=== PATIENT | female | born 1955 | race Caucasian/White ===

== ENCOUNTER 2018-04-25 11:35 | Inpatient (IN) | payer OTHER ==
[2018-04-25] MEDS ORDERED: METOCLOPRAMIDE 5 MG/ML 2 ML VIAL IVP STA (12:02)
[2018-04-25] MEDS ORDERED: MECLIZINE 12.5 MG TAB PO STA (12:02)
[2018-04-25] MEDS ORDERED: SODIUM CHLORIDE 0.9% 1,000 ML IV STA (12:02)
--- NOTE | 2018-04-25 12:07 | ED ---
General Adult HPI - General Chief complaint: Dizziness Stated complaint: Dizziness Time Seen by Provider: 04/25/18 11:48 Source: patient, RN notes reviewed Mode of arrival: wheelchair Limitations: no limitations - History of Present Illness Initial comments: Patient is a pleasant 62-year-old female presenting to the emergency department with lightheadedness and nausea. Symptoms have been present for months. Daughter helps provide history. Daughter and patient argue regarding history. Patient states she does have visual problems which is chronic. Patient states her visual problems have progressively worsened since the age of 38. Patient states she has not seen an eye doctor in several years. No confusion. Daughter states patient does have occasional memory problems. No headache or isolated area of weakness. - Related Data Home Medications Medication Instructions Recorded Confirmed Cyanocobalamin (Vitamin B-12) 1,000 mcg PO DAILY 04/25/18 04/25/18 [Vitamin B-12] Ibuprofen [Motrin Ib] 400 mg PO BID PRN 04/25/18 04/25/18 Multivitamins, Thera [Multivitamin 1 tab PO DAILY 04/25/18 04/25/18 (formulary)] Pyridoxine HCl (Vitamin B6) 100 mg PO DAILY 04/25/18 04/25/18 [Vitamin B-6] Allergies Allergy/AdvReac Type Severity Reaction Status Date / Time No Known Allergies Allergy Verified 04/25/18 12:19 Review of Systems ROS Statement: Those systems with pertinent positive or pertinent negative responses have been documented in the HPI. ROS Other: All systems not noted in ROS Statement are negative. Constitutional: Denies: fever Eyes: Reports: vision change (Chronic). Denies: eye pain ENT: Denies: ear pain Respiratory: Denies: cough Cardiovascular: Denies: chest pain Endocrine: Denies: fatigue Gastrointestinal: Denies: abdominal pain Genitourinary: Denies: dysuria Musculoskeletal: Denies: back pain Skin: Denies: rash Neurological: Denies: weakness Past Medical History Past Medical History: No Reported History History of Any Multi-Drug Resistant Organisms: None Reported Past Surgical History: No Surgical Hx Reported Past Psychological History: No Psychological Hx Reported Smoking Status: Current every day smoker Past Alcohol Use History: Rare Past Drug Use History: Marijuana General Exam Limitations: no limitations General appearance: alert, in no apparent distress Head exam: Present: atraumatic Eye exam: Present: normal appearance, PERRL, EOMI. Absent: nystagmus Expanded Eyelids: Normal Inspection: Bilateral Pupils: Regular, Round: Bilateral Sclera/Conjunctival: Normal Inspection: Bilateral Posterior chamber: Normal Inspection: Bilateral ENT exam: Present: normal oropharynx Neck exam: Present: normal inspection Respiratory exam: Present: normal lung sounds bilaterally Cardiovascular Exam: Present: regular rate, normal rhythm GI/Abdominal exam: Present: soft. Absent: tenderness Extremities exam: Present: normal inspection Neurological exam: Present: alert, CN II-XII intact. Absent: motor sensory deficit Expanded Neurological exam: Present: protecting the airway Speech: Present: fluid speech Cranial nerves: EOM's Intact: Normal Cerebellar function: Finger to Nose: Normal Sensory exam: Upper Extremity Light Touch: Normal, Lower Extremity Light Touch: Normal Motor strength exam: RUE: 5, LUE: 5, RLE: 5, LLE: 5 Eye Response: (4) open spontaneously Motor Response: (6) obeys commands Verbal Response: (5) oriented Psychiatric exam: Present: normal affect, normal mood Skin exam: Present: normal color Course Vital Signs 04/25/18 04/25/18 04/25/18 11:38 12:22 13:00 Temperature 97.7 F Pulse Rate 64 59 L 56 L Respiratory 16 16 16 Rate Blood Pressure 247/86 212/96 184/103 O2 Sat by Pulse 97 99 99 Oximetry 04/25/18 14:00 Temperature Pulse Rate 63 Respiratory 18 Rate Blood Pressure 208/73 O2 Sat by Pulse 99 Oximetry EKG Findings - EKG Comments: EKG Findings:: Normal sinus rhythm 61. NH 136. QRS 80. QT 444. QTC 446. Normal axis. Normal QRS. No acute ST change. Medical Decision Making - Medical Decision Making Patient reevaluated and resting comfortably in bed. Patient remains unchanged. Blood pressure has improved some. Accu-Chek has continued hyperglycemia. Case was discussed with Dr. montano, who will admit for hospital call. - Lab Data Result diagrams: 04/25/18 12:18 04/25/18 12:18 Lab Results 04/25/18 04/25/18 04/25/18 Range/Units 12:18 12:18 12:18 WBC 9.8 (3.8-10.6) k/uL RBC 5.00 (3.80-5.40) m/uL Hgb 14.3 (11.4-16.0) gm/dL Hct 43.7 (34.0-46.0) % MCV 87.2 (80.0-100.0) fL MCH 28.6 (25.0-35.0) pg MCHC 32.8 (31.0-37.0) g/dL RDW 13.7 (11.5-15.5) % Plt Count 210 (150-450) k/uL Neutrophils % 52 % Lymphocytes % 36 % Monocytes % 5 % Eosinophils % 5 % Basophils % 1 % Neutrophils # 5.1 (1.3-7.7) k/uL Lymphocytes # 3.5 (1.0-4.8) k/uL Monocytes # 0.4 (0-1.0) k/uL Eosinophils # 0.5 (0-0.7) k/uL Basophils # 0.1 (0-0.2) k/uL PT 9.3 (9.0-12.0) sec INR 0.9 (<1.2) Sodium 137 (137-145) mmol/L Potassium 4.9 (3.5-5.1) mmol/L Chloride 103 (98-107) mmol/L Carbon Dioxide 25 (22-30) mmol/L Anion Gap 9 mmol/L BUN 23 H (7-17) mg/dL Creatinine 0.80 (0.52-1.04) mg/dL Est GFR (CKD-EPI)AfAm >90 (>60 ml/min/1.73 sqM) Est GFR (CKD-EPI)NonAf 78 (>60 ml/min/1.73 sqM) Glucose 354 H (74-99) mg/dL POC Glucose (mg/dL) (75-99) mg/dL POC Glu Hoisting Engineer ID Calcium 9.3 (8.4-10.2) mg/dL Total Bilirubin 0.2 (0.2-1.3) mg/dL AST 21 (14-36) U/L ALT 31 (9-52) U/L Alkaline Phosphatase 79 (38-126) U/L Total Protein 6.3 (6.3-8.2) g/dL Albumin 3.4 L (3.5-5.0) g/dL 04/25/18 Range/Units 13:47 WBC (3.8-10.6) k/uL RBC (3.80-5.40) m/uL Hgb (11.4-16.0) gm/dL Hct (34.0-46.0) % MCV (80.0-100.0) fL MCH (25.0-35.0) pg MCHC (31.0-37.0) g/dL RDW (11.5-15.5) % Plt Count (150-450) k/uL Neutrophils % % Lymphocytes % % Monocytes % % Eosinophils % % Basophils % % Neutrophils # (1.3-7.7) k/uL Lymphocytes # (1.0-4.8) k/uL Monocytes # (0-1.0) k/uL Eosinophils # (0-0.7) k/uL Basophils # (0-0.2) k/uL PT (9.0-12.0) sec INR (<1.2) Sodium (137-145) mmol/L Potassium (3.5-5.1) mmol/L Chloride (98-107) mmol/L Carbon Dioxide (22-30) mmol/L Anion Gap mmol/L BUN (7-17) mg/dL Creatinine (0.52-1.04) mg/dL Est GFR (CKD-EPI)AfAm (>60 ml/min/1.73 sqM) Est GFR (CKD-EPI)NonAf (>60 ml/min/1.73 sqM) Glucose (74-99) mg/dL POC Glucose (mg/dL) 384 H (75-99) mg/dL POC Glu Hoisting Engineer ID Fanny Story Calcium (8.4-10.2) mg/dL Total Bilirubin (0.2-1.3) mg/dL AST (14-36) U/L ALT (9-52) U/L Alkaline Phosphatase (38-126) U/L Total Protein (6.3-8.2) g/dL Albumin (3.5-5.0) g/dL - Radiology Data Radiology results: report reviewed (Computed tomography scan the brain shows no acute intercranial abnormality. Some fluid in the right mastoid.) Disposition Clinical Impression: Uncontrolled diabetes mellitus, Hypertension Disposition: ADMITTED IP TO THIS HOSP Is patient prescribed a controlled substance at d/c from ED?: No Referrals: None,Stated [Primary Care Provider] - 1-2 days Decision Time: 14:24
[2018-04-25 13:03] LABS: ALT 31 U/L (9-52); AST 21 U/L (14-36); Albumin 3.4 g/dL (3.5-5.0); Alkaline Phosphatase 79 U/L (38-126); Anion Gap 9 mmol/L; Blood Urea Nitrogen 23 mg/dL (7-17); Calcium 9.3 mg/dL (8.4-10.2); Carbon Dioxide 25 mmol/L (22-30); Chloride 103 mmol/L (98-107); Glucose 354 mg/dL (74-99); INR 0.9 (<1.2); Potassium 4.9 mmol/L (3.5-5.1); Prothrombin Time 9.3 sec (9.0-12.0); Sodium 137 mmol/L (137-145); Total Bilirubin 0.2 mg/dL (0.2-1.3); Total Protein 6.3 g/dL (6.3-8.2)
--- NOTE | 2018-04-25 13:11 | CT ---
EXAMINATION TYPE: CT brain wo con DATE OF EXAM: 04/25/2018 COMPARISON: NONE HISTORY: 62-year-old female Dizziness, blurred vision with vomiting TECHNIQUE: Examination was done in axial plane without intravenous contrast. Coronal and sagittal r econstructions performed. CT DLP: 1121 mGycm Automated exposure control for dose reduction was used. FINDINGS: There is no evidence of acute intracranial hemorrhage, acute ischemic changes, mass, mass-effect, or extra-axial fluid collection. There is no effacement of cerebral sulci or basal subarachnoid cister ns. There is no hydrocephalus. There is no midline shift. Kumar-white matter distinction is preserv ed. Mild age-related supratentorial volume loss. Mild patchy periventricular white matter hypodensities l ikely relate to changes of chronic small vessel ischemic disease. Mild to moderate mucosal thickening anterior right ethmoid air cells and bilateral frontal sinuses. O rbits and globes are intact. Partial opacification of the right mastoid air cells. IMPRESSION: 1. No acute intracranial abnormality seen. Age-related volume loss and mild burden of chronic small v essel ischemic disease. 2. Trapped fluid in the right mastoid air cells. Correlate for any mastoid pain to exclude mastoiditi s. 3. Mild to moderate chronic bifrontal sinus disease.
[2018-04-25 13:26] LABS: Basophils # (A) 0.1 k/uL (0-0.2); Basophils % (A) 1 %; Eosinophils # (A) 0.5 k/uL (0-0.7); Eosinophils % (A) 5 %; HCT 43.7 % (34.0-46.0); HGB 14.3 gm/dL (11.4-16.0); Lymphocytes # (A) 3.5 k/uL (1.0-4.8); Lymphocytes % (A) 36 %; MCH 28.6 pg (25.0-35.0); MCHC 32.8 g/dL (31.0-37.0); MCV 87.2 fL (80.0-100.0); Mean Platelet Volume 8.1; Monocytes # (A) 0.4 k/uL (0-1.0); Monocytes % (A) 5 %; Neutrophils # (A) 5.1 k/uL (1.3-7.7); Neutrophils % (A) 52 %; Platelet Count 210 k/uL (150-450); RDW 13.7 % (11.5-15.5); WBC 9.8 k/uL (3.8-10.6)
[2018-04-25 13:51] LABS: Glucose,Whole Blood 384 mg/dL (75-99)
[2018-04-25] MEDS ORDERED: NALOXONE 0.4 MG/ML 1 ML VIAL IV PRN (14:25)
[2018-04-25] MEDS ORDERED: amLODIPine 2.5 MG TAB PO STA (14:28)
[2018-04-25] MEDS: SODIUM CHLORIDE 0.9% 1,000 ML IV SCH (15:23)
[2018-04-25 16:52] LABS: Glucose,Whole Blood 369 mg/dL (75-99)
[2018-04-25] MEDS ORDERED: IBUPROFEN 400 MG TAB PO PRN (17:16)
[2018-04-25] MEDS ORDERED: amLODIPine 5 MG TAB PO STA ×2 (17:16→19:02)
[2018-04-25] MEDS ORDERED: INSULIN ASPART 100 UNIT/ML 1 ML 10 ML VIAL SQ SCH (17:30)
[2018-04-25] MEDS ORDERED: TEMAZEPAM 15 MG CAP PO PRN (18:58)
[2018-04-25] MEDS ORDERED: hydrALAZINE HCL 20 MG/ML 1 ML VIAL IVP PRN (18:58)
[2018-04-25] MEDS ORDERED: cloNIDine HCL 0.1 MG TAB PO PRN (18:58)
[2018-04-25] MEDS ORDERED: ALPRAZolam 0.25 MG TAB PO PRN (18:58)
[2018-04-25] MEDS ORDERED: HYDROcodone/APAP 5-325MG 1 EACH TAB PO PRN (18:58)
[2018-04-25] MEDS ORDERED: INSULIN REGULAR 100 UNIT in SODIUM CHLORIDE 0.9% 100 ML IV SCH ×7 (19:00→21:00)
[2018-04-25] MEDS: HEPARIN SODIUM,PORCINE 5,000 UNIT/ML 1 ML VIAL SQ SCH (20:03)
[2018-04-25] MEDS: METOPROLOL TARTRATE 25 MG TAB PO SCH (20:03)
[2018-04-25] MEDS: NICOTINE 14MG/24HR PATCH TRANSDERM SCH (20:05)
--- NOTE | 2018-04-25 20:08 | XR ---
EXAMINATION TYPE: XR chest 1V portable DATE OF EXAM: 04/25/2018 Comparison: Clinical History: 62-year-old female CHF Findings: The heart is upper limits of normal in size. Aorta within normal limits. Diffuse interstitial promine nce. Hazy peripheral lower lung densities relating to overlying soft tissue. Impression: Borderline heart size and mild diffuse interstitial prominence. Mild pulmonary vascular congestion no t excluded. No significant pleural effusion or [place] pulmonary edema.
[2018-04-25 20:27] LABS: Glucose,Whole Blood 250 mg/dL (75-99)
[2018-04-25] MEDS: INSULIN ASPART 100 UNIT/ML 1 ML 10 ML VIAL SQ SCH (21:27)
[2018-04-25 21:36] LABS: Glucose,Whole Blood 192 mg/dL (75-99)
[2018-04-25 22:58] LABS: Hemoglobin A1C 11.7 % (4.0-6.0)
[2018-04-25] MEDS: metFORMIN 500 MG TAB PO SCH (23:17)
[2018-04-26 03:41] LABS: Glucose,Whole Blood 221 mg/dL (75-99)
[2018-04-26 06:19] LABS: Glucose,Whole Blood 227 mg/dL (75-99)
[2018-04-26] MEDS: INSULIN ASPART 100 UNIT/ML 1 ML 10 ML VIAL SQ SCH ×4 (06:48→21:13)
[2018-04-26] MEDS: PANTOPRAZOLE 40 MG TABLET PO SCH (06:48)
[2018-04-26] MEDS: metFORMIN 500 MG TAB PO SCH ×2 (06:48→17:31)
--- NOTE | 2018-04-26 07:16 | HP ---
HISTORY AND PHYSICAL DATE OF SERVICE: 04/25/2018 CHIEF COMPLAINT: Dizziness. HISTORY OF PRESENT ILLNESS: This 62-year-old woman with a past medical history of no significant medical issues not being followed by any primary physician in the outpatient setting was feeling dizzy. The patient came to [facility]. The patient also felt lightheaded and nausea and the patient had some problems also which is gradually getting worse and the patient was noted to have blood sugar elevated up to 350 indicating new onset diabetes mellitus. The patient also had blood pressure elevated up to 200/84, indicating accelerated hypertension. The patient is admitted for further evaluation and treatment. There is no history of fever, rigors. No headache, loss of consciousness, seizures. PAST MEDICAL HISTORY: No significant cardiorespiratory illness. MEDICATIONS: Prior to admission include home medication: 1. Motrin 400 mg b.i.d. p.r.n. 2. Vitamin B12 1000 mcg. 3. Vitamin B6 100 mg daily. 4. Multivitamins daily. ALLERGIES: None. FAMILY HISTORY: No history of heart disease or strokes in the family. SOCIAL HISTORY: History of smoking, history of THC, no history of alcohol intake. REVIEW OF SYSTEMS: ENT: No diminished hearing or vision. CARDIOVASCULAR: No angina or palpitations. Otherwise as mentioned. RESPIRATORY: No cough. GI: No nausea. : No dysuria or retention. NERVOUS SYSTEM: As mentioned earlier. ALLERGY/IMMUNOLOGY: No asthma. MUSCULOSKELETAL: As mentioned earlier. HEMATOLOGY/ONCOLOGY: No history of anemia. ENDOCRINE: No history of diabetes or hypothyroidism. CONSTITUTIONAL: As mentioned. DERMATOLOGY: Negative. RHEUMATOLOGY: Negative. PSYCHIATRY: As mentioned earlier. EXAMINATION: Alert and oriented x3. Pulse 63, blood pressure 200/84, respiration 18, temperature is normal, pulse ox 94% on 2 L. HEENT: Conjunctivae normal. Oral mucosa moist. NECK: No jugular venous distention. No carotid bruit. No lymph node enlargement. CARDIOVASCULAR: S1, S2 muffled. No S3, no S4. RESPIRATORY: Breath sounds diminished in the bases. A few rhonchi, no crackles. ABDOMEN: Soft, nontender. No mass palpable. LEGS: No edema, no swelling. NERVOUS SYSTEM: Higher functions as mentioned earlier. Moves all four limbs. No focal motor deficits LYMPHATIC: No lymphadenopathy in the neck, axillae, groin. SKIN: No ulcer, rashes or bleeding. LABS: CBC within normal limits. Glucose 350, 384, 369. Albumin 3.4. The EKG is reviewed personally showed no acute changes. The CT scan of the brain showed no acute abnormality. Chest x-ray showed no acute abnormality. The chest x-ray reviewed. ASSESSMENT: 1. Accelerated hypertension, new onset. 2. New onset diabetes mellitus, uncontrolled with hyperglycemia. 3. History of nicotine dependence. 4. History of THC. 5. Obesity with body mass index of 31.6. RECOMMENDATIONS AND DISCUSSION: This 62-year-old woman who presented with multiple complex medical issues, we will monitor the patient closely. Continue the current management and symptomatic treatment. Will initiate Glucophage. Accu-Cheks a.c. and at bedtime. Otherwise I would recommend Norvasc for blood pressure and cardiology was consulted. The prognosis is guarded because of multiple complex medical issues. Smoking cessation has been recommended. DVT prophylaxis. See orders of further details and repeat labs were ordered for the morning. Hemoglobin and HCT A1c also will be requested. The blood sugar has been elevated and the insulin drip was planned urgently, but however, since blood sugar is coming down, will check insulin scale and I would also initiate Glucophage also. We will continue to monitor. Might be able to avoid insulin in an outpatient setting. Of course, that will depend on the evaluation of estimated hemoglobin A1c as well. Again, I would also recommend the patient follow up with primary physician closely and discussed with the patient, who understands. Further recommendations to follow. JENNY / LESLY: [id number] / CESAR
[2018-04-26] MEDS ORDERED: INSULIN ASPART 100 UNIT/ML 1 ML 10 ML VIAL SQ SCH ×3 (07:30)
[2018-04-26 07:36] LABS: Basophils # (A) 0.1 k/uL (0-0.2); Basophils % (A) 1 %; Eosinophils # (A) 0.5 k/uL (0-0.7); Eosinophils % (A) 5 %; HCT 39.5 % (34.0-46.0); HGB 13.3 gm/dL (11.4-16.0); Lymphocytes # (A) 4.1 k/uL (1.0-4.8); Lymphocytes % (A) 41 %; MCH 29.1 pg (25.0-35.0); MCHC 33.6 g/dL (31.0-37.0); MCV 86.6 fL (80.0-100.0); Mean Platelet Volume 8.3; Monocytes # (A) 0.4 k/uL (0-1.0); Monocytes % (A) 4 %; Neutrophils # (A) 4.6 k/uL (1.3-7.7); Neutrophils % (A) 46 %; Platelet Count 201 k/uL (150-450); RBC 4.57 m/uL (3.80-5.40); RDW 13.5 % (11.5-15.5)
[2018-04-26 07:41] LABS: Calcium 8.5 mg/dL (8.4-10.2); Potassium 4.6 mmol/L (3.5-5.1)
[2018-04-26] MEDS: amLODIPine 10 MG TAB PO SCH (08:51)
[2018-04-26] MEDS: CYANOCOBALAMIN 500 MCG TAB PO SCH (08:51)
[2018-04-26] MEDS: PYRIDOXINE 50 MG TAB PO SCH (08:51)
[2018-04-26] MEDS: HEPARIN SODIUM,PORCINE 5,000 UNIT/ML 1 ML VIAL SQ SCH ×2 (08:52→21:13)
[2018-04-26] MEDS: METOPROLOL TARTRATE 25 MG TAB PO SCH (08:52)
[2018-04-26] MEDS: NICOTINE 14MG/24HR PATCH TRANSDERM SCH (08:52)
[2018-04-26] MEDS ORDERED: amLODIPine 2.5 MG TAB PO SCH (09:00)
--- NOTE | 2018-04-26 11:37 | P.CRDCN ---
History of Present Illness Consult date: 04/26/18 Requesting physician: Don Mitchell Chief complaint: Dizziness, nausea History of present illness: This is a 62-year-old female who has not followed regularly with any physician as an outpatient. She presented to the hospital with symptoms of dizziness with associated lightheadedness and nausea. Apparently the symptoms have been going on for several months, she had also been having some issues with her vision. Patient is a current smoker and also uses marijuana. Her blood pressure on arrival here was 247/86, heart rate in the 60s, 97% on room air. Blood glucose on arrival 354. CBC is normal, sodium 140, potassium 4.6, BUN 23, creatinine 0.9. EKG showed normal sinus rhythm with nonspecific ST-T wave changes. CAT scan of the brain did not reveal any acute intracranial abnormality. Trapped fluid in the right mastoid noted. Mild to moderate chronic bifrontal sinus disease. Chest x-ray showed borderline heart size and mild diffuse interstitial prominence. Mild pulmonary vascular congestion not excluded. Blood pressure this morning at the time of examination 170/78. Patient is currently on Norvasc 10 mg daily, we will add losartan 50 mg daily to her medication regime, she is also on 25 mg of metoprolol twice a day which we will change to Coreg. We will discontinue the when necessary antihypertensives. Past Medical History Past Medical History: No Reported History History of Any Multi-Drug Resistant Organisms: None Reported Past Surgical History: No Surgical Hx Reported Past Psychological History: No Psychological Hx Reported Smoking Status: Current every day smoker Past Alcohol Use History: Rare Past Drug Use History: Marijuana Medications and Allergies Home Medications Medication Instructions Recorded Confirmed Type Cyanocobalamin (Vitamin B-12) 1,000 mcg PO DAILY 04/25/18 04/25/18 History [Vitamin B-12] Ibuprofen [Motrin Ib] 400 mg PO BID PRN 04/25/18 04/25/18 History Multivitamins, Thera [Multivitamin 1 tab PO DAILY 04/25/18 04/25/18 History (formulary)] Pyridoxine HCl (Vitamin B6) 100 mg PO DAILY 04/25/18 04/25/18 History [Vitamin B-6] Allergies Allergy/AdvReac Type Severity Reaction Status Date / Time No Known Allergies Allergy Verified 04/25/18 12:19 Physical Exam Vitals: Vital Signs Temp Pulse Pulse Resp BP BP Pulse Ox 04/26/18 08:00 98.1 F 57 L 18 170/78 97 04/26/18 03:47 97.6 F 60 18 157/69 95 04/26/18 00:00 98.0 F 62 18 180/72 98 04/25/18 23:30 197/82 04/25/18 23:00 201/83 04/25/18 22:00 190/80 04/25/18 21:25 170/60 04/25/18 21:20 197/82 04/25/18 21:12 98 04/25/18 21:00 200/86 04/25/18 20:40 192/82 04/25/18 20:20 228/92 04/25/18 20:00 98.2 F 65 18 224/100 97 04/25/18 18:54 194/85 04/25/18 16:52 66 18 200/84 94 L 04/25/18 16:24 68 16 174/84 04/25/18 15:00 62 18 192/96 100 04/25/18 14:00 63 18 208/73 99 04/25/18 13:00 56 L 16 184/103 99 04/25/18 12:22 59 L 16 212/96 99 04/25/18 11:38 97.7 F 64 16 247/86 97 Intake and Output 04/25/18 04/26/18 04/26/18 22:59 06:59 14:59 Intake Total 180 10 Balance 180 10 Intake: IV 10 0.9 10 Oral 180 Other: Voiding Method Toilet Toilet Toilet # Voids 1 Weight 86.183 kg 86.5 kg PHYSICAL EXAMINATION: GENERAL: 62-year-old female who appears older than her stated age, in no apparent distress at the time of her examination HEENT: Head is atraumatic, normocephalic. Pupils equal, round. Sclera anicteric. Conjunctiva are clear. Mucous membranes of the mouth are moist. Neck is supple. There is no elevated jugular venous pressure.] bruit is heard. HEART EXAMINATION: Heart S1, S2 normal. No murmur or gallop heard. CHEST EXAMINATION: Lungs are clear to auscultation and precussion. No chest wall tenderness is noted on palpation or with deep breathing. ABDOMEN: Soft, nontender. Bowel sounds are heard. No organomegaly noted. EXTREMITIES: 2+ peripheral pulses with no evidence of peripheral edema and no calf tenderness noted. NEUROLOGIC patient is awake, alert and oriented -3. . Results 04/26/18 06:18 04/26/18 06:18 Cardiac Enzymes 04/25/18 Range/Units 12:18 AST 21 (14-36) U/L Coagulation 04/25/18 Range/Units 12:18 PT 9.3 (9.0-12.0) sec CBC 04/25/18 04/26/18 Range/Units 12:18 06:18 WBC 9.8 10.0 (3.8-10.6) k/uL RBC 5.00 4.57 (3.80-5.40) m/uL Hgb 14.3 13.3 (11.4-16.0) gm/dL Hct 43.7 39.5 (34.0-46.0) % Plt Count 210 201 (150-450) k/uL Comprehensive Metabolic Panel 04/25/18 04/26/18 Range/Units 12:18 06:18 Sodium 137 140 (137-145) mmol/L Potassium 4.9 4.6 (3.5-5.1) mmol/L Chloride 103 106 (98-107) mmol/L Carbon Dioxide 25 27 (22-30) mmol/L BUN 23 H 23 H (7-17) mg/dL Creatinine 0.80 0.90 (0.52-1.04) mg/dL Glucose 354 H 219 H (74-99) mg/dL Calcium 9.3 8.5 (8.4-10.2) mg/dL AST 21 (14-36) U/L ALT 31 (9-52) U/L Alkaline Phosphatase 79 (38-126) U/L Total Protein 6.3 (6.3-8.2) g/dL Albumin 3.4 L (3.5-5.0) g/dL Current Medications Generic Name Dose Route Start Last Admin Trade Name Freq PRN Reason Stop Dose Admin Hydrocodone Bitart/Acetaminophen 1 each 04/25/18 18:58 [place] 5-325 PO Q6HR PRN MODERATE Pain Alprazolam 0.25 mg 04/25/18 18:58 Xanax PO TID PRN Anxiety Amlodipine Besylate 10 mg 04/26/18 09:00 06/24/18 08:51 Norvasc PO 10 mg DAILY [facility] Administration Cyanocobalamin 1,000 mcg 04/26/18 09:00 04/26/18 08:51 Vitamin B-12 PO 1,000 mcg DAILY [facility] Administration Heparin Sodium (Porcine) 5,000 unit 04/25/18 21:00 04/26/18 08:52 Heparin SQ 5,000 unit Q12HR [facility] Administration Sodium Chloride 1,000 mls @ 20 mls/hr 04/25/18 14:30 04/25/18 15:23 Saline 0.9% IV Not Given .Q24H [facility] Ibuprofen 400 mg 04/25/18 17:16 Motrin PO BID PRN Pain Insulin Aspart 0 unit 04/25/18 21:18 04/26/18 06:48 Novolog SQ 3 unit ACHS [facility] Administration Protocol Losartan Potassium 50 mg 04/26/18 09:45 Cozaar PO DAILY [facility] Metformin HCl 1,000 mg 04/25/18 23:15 04/26/18 06:48 Glucophage PO 1,000 mg BID-W/MEALS [facility] Administration Metoprolol Tartrate 25 mg 04/25/18 21:00 04/26/18 08:52 Lopressor PO 25 mg BID [facility] Administration Multivitamins 1 each 04/26/18 12:00 Theragran PO 1200 [facility] Naloxone HCl 0.2 mg 04/25/18 14:25 Narcan IV Q2M PRN Opioid Reversal Nicotine 1 patch 04/25/18 19:00 04/26/18 08:52 Habitrol 14mg/24hr Patch TRANSDERM Not Given DAILY [facility] Pantoprazole Sodium 40 mg 04/26/18 07:30 04/26/18 06:48 Protonix PO 40 mg [id number] [facility] Administration Pyridoxine HCl 100 mg 04/26/18 09:00 04/26/18 08:51 Vitamin B-6 PO 100 mg DAILY [facility] Administration Temazepam 15 mg 04/25/18 18:58 Restoril PO HS PRN Insomnia Intake and Output 04/25/18 04/26/18 04/26/18 22:59 06:59 14:59 Intake Total 180 10 Balance 180 10 Intake: IV 10 0.9 10 Oral 180 Other: Voiding Method Toilet Toilet Toilet # Voids 1 Weight 86.183 kg 86.5 kg 04/26/18 06:18 04/26/18 06:18 EKG Interpretations (text) EKG shows normal sinus rhythm with nonspecific ST-T wave changes Assessment and Plan Plan: Assessment and plan #1 hypertensive urgency #2 new-onset diabetes, uncontrolled with hyperglycemia #3 nicotine dependence #4 marijuana use Plan We will obtain an echocardiogram with Doppler study. We will also discontinue her when necessary antihypertensives, add Cozaar 50 mg to her medication regime. We will also discontinue the metoprolol and changed to Coreg. Check fasting lipid profile. Patient has been instructed strongly regarding the importance of nicotine cessation and regular follow-up with primary care doctor to maintain adequate levels in her blood sugars as well as blood pressure. We will initiate the patient on a statin as well. Further recommendations to follow DNP note has been reviewed, I agree with a documented findings and plan of care. Patient was seen and examined.
[2018-04-26 11:39] LABS: Glucose,Whole Blood 222 mg/dL (75-99)
[2018-04-26 12:03] LABS: Cholesterol 242 mg/dL (<200); HDL Cholesterol 34 mg/dL (40-60); LDL Cholesterol,Calculated 153 mg/dL (0-99); Triglycerides 273 mg/dL (<150)
[2018-04-26] MEDS: LOSARTAN 50 MG TAB PO SCH (12:13)
[2018-04-26] MEDS: CARVEDILOL 3.125 MG TAB PO SCH ×2 (12:14→16:15)
[2018-04-26] MEDS: MULTIVITAMINS, THERA 1 EACH TAB PO SCH (12:15)
[2018-04-26] MEDS: SODIUM CHLORIDE 0.9% 1,000 ML IV SCH (12:18)
[2018-04-26 16:39] LABS: Glucose,Whole Blood 177 mg/dL (75-99)
[2018-04-26 20:18] LABS: Glucose,Whole Blood 173 mg/dL (75-99)
[2018-04-26] MEDS: cloNIDine HCL 0.2 MG TAB PO SCH (21:12)
--- NOTE | 2018-04-26 21:18 | PN ---
PROGRESS NOTE DATE OF SERVICE: 04/26/2018. INTERVAL HISTORY: This 62-year-old woman was admitted with new onset diabetes and hypertension being closely monitored. Patient had accelerated hypertension. Cardiology is following the patient closely. No chest pain. No palpitations. No fever. Internal Investigator evaluation has been sought. PHYSICAL EXAM: Alert and oriented x3. Pulse 57, blood pressure 149/88, respiration 14, temperature 98 degrees, pulse ox 97% on room air. HEENT: Conjunctivae normal. NECK: No jugular venous distention. CARDIOVASCULAR: S1, S2 muffled. RESPIRATORY: Breath sounds diminished in the bases. A few scattered rhonchi and crackles. ABDOMEN: Soft, nontender. No mass palpable. LEGS: No edema. No swelling. NERVOUS SYSTEM: Higher functions as mentioned earlier. Moves all four extremities. No focal deficits. SKIN: No ulcer, rash or bleeding. LABS: CBC within normal limits and glucose is 227 and triglycerides 273, cholesterol is 242 and LDL is 153. ASSESSMENT: 1. Accelerated hypertension, new onset of hypertensive urgency. 2. New onset diabetes type 2, uncontrolled with hyperglycemia. 3. History of nicotine dependence. 4. History of THC. 5. Obesity with body mass index of 31.6. RECOMMENDATIONS AND DISCUSSION: In this 62-year-old woman who presented with multiple complex medical issues, we will monitor the patient closely. Continue the current medications, continue symptomatic treatment. Continue with the initial Lipitor. Otherwise, continue with Coreg and Norvasc. Guarded prognosis because of multiple complex medical issues. Further recommendations to follow. MMODL / IJN: [id number] /
[2018-04-26 23:04] VITALS: RESP 18
[2018-04-27 05:54] LABS: Glucose,Whole Blood 200 mg/dL (75-99)
[2018-04-27] MEDS: CARVEDILOL 3.125 MG TAB PO SCH (06:30)
[2018-04-27] MEDS: PANTOPRAZOLE 40 MG TABLET PO SCH (06:30)
[2018-04-27] MEDS: metFORMIN 500 MG TAB PO SCH ×2 (06:30→17:22)
[2018-04-27] MEDS: INSULIN ASPART 100 UNIT/ML 1 ML 10 ML VIAL SQ SCH ×4 (06:30→21:00)
[2018-04-27 07:08] LABS: Basophils # (A) 0.1 k/uL (0-0.2); Basophils % (A) 1 %; Eosinophils # (A) 0.5 k/uL (0-0.7); Eosinophils % (A) 5 %; HCT 37.7 % (34.0-46.0); HGB 12.6 gm/dL (11.4-16.0); Lymphocytes # (A) 4.7 k/uL (1.0-4.8); Lymphocytes % (A) 47 %; MCH 29.3 pg (25.0-35.0); MCHC 33.4 g/dL (31.0-37.0); MCV 87.8 fL (80.0-100.0); Mean Platelet Volume 7.7; Monocytes # (A) 0.5 k/uL (0-1.0); Monocytes % (A) 5 %; Neutrophils # (A) 4.1 k/uL (1.3-7.7); Neutrophils % (A) 40 %; Platelet Count 182 k/uL (150-450); RBC 4.29 m/uL (3.80-5.40); RDW 13.9 % (11.5-15.5)
[2018-04-27 07:16] LABS: Calcium 8.7 mg/dL (8.4-10.2); Potassium 4.8 mmol/L (3.5-5.1)
[2018-04-27] MEDS ORDERED: CARVEDILOL 3.125 MG TAB PO ONE (08:00)
[2018-04-27] MEDS: CYANOCOBALAMIN 500 MCG TAB PO SCH (08:44)
[2018-04-27] MEDS: HEPARIN SODIUM,PORCINE 5,000 UNIT/ML 1 ML VIAL SQ SCH ×2 (08:44→20:19)
[2018-04-27] MEDS: amLODIPine 10 MG TAB PO SCH (08:44)
[2018-04-27] MEDS: cloNIDine HCL 0.2 MG TAB PO SCH ×2 (08:44→20:19)
[2018-04-27] MEDS: LOSARTAN 50 MG TAB PO SCH (08:44)
[2018-04-27] MEDS: NICOTINE 14MG/24HR PATCH TRANSDERM SCH (08:45)
[2018-04-27] MEDS: PYRIDOXINE 50 MG TAB PO SCH (08:45)
[2018-04-27 10:44] VITALS: BMI 32.1
[2018-04-27 11:18] LABS: Glucose,Whole Blood 209 mg/dL (75-99)
[2018-04-27] MEDS: MULTIVITAMINS, THERA 1 EACH TAB PO SCH (12:20)
--- NOTE | 2018-04-27 12:48 | ECHOF ---
Referral Reason:htn MEASUREMENTS -------- HEIGHT: 165.1 cm WEIGHT: 87.1 kg BP: 172/72 IVSd: 1.4 cm (0.6 - 1.1) LVIDd: 4.3 cm (3.9 - 5.3) LVPWd: 1.5 cm (0.6 - 1.1) IVSs: 1.9 cm LVIDs: 3.4 cm LVPWs: 1.6 cm LA Diam: 3.7 cm (2.7 - 3.8) LAESV Index (A-L): 30.55 ml/m Ao Diam: 3.0 cm (2.0 - 3.7) AV Cusp: 2.2 cm (1.5 - 2.6) LA Diam: 4.1 cm (2.7 - 3.8) MV EXCURSION: 15.618 mm (> 18.000) MV EF SLOPE: 82 mm/s (70 - 150) EPSS: 0.3 cm MV E Fernando: 0.61 m/s MV DecT: 267 ms MV A Fernando: 0.74 m/s MV E/A Ratio: 0.82 AR PHT: 643 ms RAP: 5.00 mmHg RVSP: 11.24 mmHg FINDINGS -------- Sinus rhythm. This was a technically adequate study. The left ventricular size is normal. There is moderate concentric left ventricular hypertrophy. O verall left ventricular systolic function is normal with, an EF between 55 - 60 %. The right ventricle is normal in size. The left atrial size is normal. Normal LA size by volume 22+/-6 ml/m2. The right atrial size is normal. There is mild aortic regurgitation. Mild mitral annular calcification present. Mild mitral regurgitation is present. Mild tricuspid regurgitation present. There is no evidence of pulmonary hypertension. The right v entricular systolic pressure, as measured by Doppler, is 11.24mmHg. Trace/mild (physiologic) pulmonic regurgitation. The aortic root size is normal. There is no pericardial effusion. CONCLUSIONS -------- 1. The left ventricular size is normal. 2. There is moderate concentric left ventricular hypertrophy. 3. The right ventricle is normal in size. 4. The left atrial size is normal. 5. The right atrial size is normal. 6. There is mild aortic regurgitation. 7. Mild mitral annular calcification present. 8. Mild mitral regurgitation is present. 9. Mild tricuspid regurgitation present. 10. There is no evidence of pulmonary hypertension. 11. The right ventricular systolic pressure, as measured by Doppler, is 11.24mmHg. 12. Trace/mild (physiologic) pulmonic regurgitation. 13. The aortic root size is normal. 14. There is no pericardial effusion. JOINT CUTTER: iWnter Murdock RDCS
--- NOTE | 2018-04-27 15:02 | P.PN ---
Subjective Progress Note Date: 04/27/18 This is a 62-year-old female who has not followed regularly with any physician as an outpatient. She presented to the hospital with symptoms of dizziness with associated lightheadedness and nausea. Apparently the symptoms have been going on for several months, she had also been having some issues with her vision. Patient is a current smoker and also uses marijuana. Her blood pressure on arrival here was 247/86, heart rate in the 60s, 97% on room air. Blood glucose on arrival 354. CBC is normal, sodium 140, potassium 4.6, BUN 23, creatinine 0.9. EKG showed normal sinus rhythm with nonspecific ST-T wave changes. CAT scan of the brain did not reveal any acute intracranial abnormality. Trapped fluid in the right mastoid noted. Mild to moderate chronic bifrontal sinus disease. Chest x-ray showed borderline heart size and mild diffuse interstitial prominence. Mild pulmonary vascular congestion not excluded. Blood pressure this morning at the time of examination 170/78. Patient is currently on Norvasc 10 mg daily, we will add losartan 50 mg daily to her medication regime, she is also on 25 mg of metoprolol twice a day which we will change to Coreg. We will discontinue the when necessary antihypertensives. 04/27/2018 Patient seen and examined this morning, overall feeling significantly better today. Blood pressure 136/60 with a heart rate in the mid 50s, 98% on room air. She is afebrile. White blood cell count 10.0, hemoglobin 12.6, platelet count 182. Sodium 138, potassium 4.8, BUN 27, creatinine 1.1. Blood sugar this morning 194. Cholesterol 242, LDL 153, HDL 34, triglycerides 273. Objective - Vital Signs Vital signs: Vital Signs Temp 97.3 F L 04/27/18 12:00 Pulse 53 L 04/27/18 12:00 Resp 18 04/27/18 12:00 BP 173/78 04/27/18 12:00 Pulse Ox 96 04/27/18 12:00 Intake & Output 04/26/18 04/27/18 04/27/18 18:59 06:59 18:59 Intake Total 360 110 480 Output Total 801 Balance 360 110 -321 Weight 87.4 kg 87.4 kg Intake: IV 10 0.9 10 Oral 360 100 480 Output: Urine 800 Stool 1 Other: Voiding Method Toilet Toilet Toilet # Voids 1 1 3 - Exam PHYSICAL EXAMINATION: GENERAL: 62-year-old female who appears older than her stated age, in no apparent distress at the time of her examination HEENT: Head is atraumatic, normocephalic. Pupils equal, round. Sclera anicteric. Conjunctiva are clear. Mucous membranes of the mouth are moist. Neck is supple. There is no elevated jugular venous pressure.] bruit is heard. HEART EXAMINATION: Heart S1, S2 normal. No murmur or gallop heard. CHEST EXAMINATION: Lungs are clear to auscultation and precussion. No chest wall tenderness is noted on palpation or with deep breathing. ABDOMEN: Soft, nontender. Bowel sounds are heard. No organomegaly noted. EXTREMITIES: 2+ peripheral pulses with no evidence of peripheral edema and no calf tenderness noted. NEUROLOGIC patient is awake, alert and oriented -3. - Labs CBC & Chem 7: 04/27/18 06:31 04/27/18 06:31 Labs: Abnormal Lab Results - Last 24 Hours (Table) 04/26/18 04/26/18 04/27/18 Range/Units 16:36 20:16 05:52 BUN (7-17) mg/dL Creatinine (0.52-1.04) mg/dL Glucose (74-99) mg/dL POC Glucose (mg/dL) 177 H 173 H 200 H (75-99) mg/dL 04/27/18 04/27/18 Range/Units 06:31 11:13 BUN 27 H (7-17) mg/dL Creatinine 1.11 H (0.52-1.04) mg/dL Glucose 194 H (74-99) mg/dL POC Glucose (mg/dL) 209 H (75-99) mg/dL Assessment and Plan Plan: Assessment and plan #1 hypertensive urgency #2 new-onset diabetes, uncontrolled with hyperglycemia #3 nicotine dependence #4 marijuana use Plan Echocardiogram with Doppler study was performed which revealed a normal left ventricular systolic function. We'll increase her dose of Lipitor to 80 mg daily, continue to monitor for 24 hours and plan for possible discharge home in the morning if stable. DNP note has been reviewed, I agree with a documented findings and plan of care. Patient was seen and examined.
[2018-04-27] MEDS: SODIUM CHLORIDE 0.9% 1,000 ML IV SCH (15:44)
[2018-04-27 16:07] LABS: Glucose,Whole Blood 236 mg/dL (75-99)
[2018-04-27] MEDS: CARVEDILOL 6.25 MG TAB PO SCH (17:23)
--- NOTE | 2018-04-27 18:05 | PN ---
PROGRESS NOTE DATE OF SERVICE: 04/27/2018 This 62-year-old woman was admitted with accelerated hypertension, new onset, with hypertensive urgency. Also she has diabetes mellitus. She is being closely monitored. No chest pain. No palpitations. No fever. Cardiology is following the patient closely. Patient has some bradycardia. On exam, alert and oriented x3. Pulse 56, blood pressure 130/61, respiration 18, temperature 97.4, pulse ox 97% on room air. HEENT: Conjunctivae normal. NECK: No jugular venous distention. CARDIOVASCULAR SYSTEM: S1, S2 muffled. RESPIRATORY SYSTEM: Breath sounds diminished at the bases. No rhonchi. No crackles. ABDOMEN: Soft, non-tender. LEGS: No edema. No swelling. NERVOUS SYSTEM: No focal deficit. LABS: CBC within normal limits. Creatinine is 1.11 and hemoglobin A1c is 11.7. ASSESSMENT: 1. Accelerated hypertension, new onset; hypertensive urgency. 2. New-onset diabetes mellitus, type 2, uncontrolled, with hyperglycemia. 3. History of nicotine dependence. 4. History of tetrahydrocannabinol. 5. Obesity with a body mass index of 31.6. RECOMMENDATIONS AND DISCUSSION: I recommend to continue current medication, continue with the monitoring, symptomatic treatment. Otherwise at this time I would also recommend adding Lantus 15 units plus scale. Continue the rest of the medications. Otherwise closely monitor. Further recommendations to follow. MMODL / IJN: [id number] /
[2018-04-27 20:37] LABS: Glucose,Whole Blood 226 mg/dL (75-99)
[2018-04-27] MEDS ORDERED: ATORVASTATIN 40 MG TAB PO SCH (21:00)
[2018-04-27] MEDS ORDERED: INSULIN DETEMIR 100 UNIT/ML 10 ML VIAL SQ SCH (21:00)
[2018-04-28 06:06] LABS: Basophils # (A) 0.1 k/uL (0-0.2); Basophils % (A) 1 %; Eosinophils # (A) 0.5 k/uL (0-0.7); Eosinophils % (A) 6 %; HCT 37.3 % (34.0-46.0); HGB 12.5 gm/dL (11.4-16.0); Lymphocytes # (A) 3.8 k/uL (1.0-4.8); Lymphocytes % (A) 42 %; MCHC 33.4 g/dL (31.0-37.0); MCV 86.9 fL (80.0-100.0); Mean Platelet Volume 8.2; Monocytes # (A) 0.4 k/uL (0-1.0); Monocytes % (A) 5 %; Neutrophils % (A) 45 %; Platelet Count 194 k/uL (150-450); RDW 13.4 % (11.5-15.5)
[2018-04-28 06:09] LABS: Calcium 8.8 mg/dL (8.4-10.2); Potassium 4.8 mmol/L (3.5-5.1)
[2018-04-28 06:16] LABS: Glucose,Whole Blood 109 mg/dL (75-99)
[2018-04-28] MEDS: INSULIN ASPART 100 UNIT/ML 1 ML 10 ML VIAL SQ SCH (06:17)
[2018-04-28] MEDS: CARVEDILOL 6.25 MG TAB PO SCH (06:18)
[2018-04-28] MEDS: metFORMIN 500 MG TAB PO SCH (06:31)
[2018-04-28] MEDS: PANTOPRAZOLE 40 MG TABLET PO SCH (06:31)
[2018-04-28] MEDS: cloNIDine HCL 0.2 MG TAB PO SCH (08:22)
[2018-04-28] MEDS: amLODIPine 10 MG TAB PO SCH (08:22)
[2018-04-28] MEDS: CYANOCOBALAMIN 500 MCG TAB PO SCH (08:22)
[2018-04-28] MEDS: LOSARTAN 50 MG TAB PO SCH (08:22)
[2018-04-28] MEDS: MULTIVITAMINS, THERA 1 EACH TAB PO SCH (08:23)
[2018-04-28] MEDS: PYRIDOXINE 50 MG TAB PO SCH (08:23)
[2018-04-28] MEDS: NICOTINE 14MG/24HR PATCH TRANSDERM SCH (08:32)
[2018-04-28] MEDS: HEPARIN SODIUM,PORCINE 5,000 UNIT/ML 1 ML VIAL SQ SCH (08:33)
--- NOTE | 2018-04-28 11:21 | P.PN ---
Subjective Progress Note Date: 04/28/18 This is a 62-year-old female who has not followed regularly with any physician as an outpatient. She presented to the hospital with symptoms of dizziness with associated lightheadedness and nausea. Apparently the symptoms have been going on for several months, she had also been having some issues with her vision. Patient is a current smoker and also uses marijuana. Her blood pressure on arrival here was 247/86, heart rate in the 60s, 97% on room air. Blood glucose on arrival 354. CBC is normal, sodium 140, potassium 4.6, BUN 23, creatinine 0.9. EKG showed normal sinus rhythm with nonspecific ST-T wave changes. CAT scan of the brain did not reveal any acute intracranial abnormality. Trapped fluid in the right mastoid noted. Mild to moderate chronic bifrontal sinus disease. Chest x-ray showed borderline heart size and mild diffuse interstitial prominence. Mild pulmonary vascular congestion not excluded. Blood pressure this morning at the time of examination 170/78. Patient is currently on Norvasc 10 mg daily, we will add losartan 50 mg daily to her medication regime, she is also on 25 mg of metoprolol twice a day which we will change to Coreg. We will discontinue the when necessary antihypertensives. 04/27/2018 Patient seen and examined this morning, overall feeling significantly better today. Blood pressure 136/60 with a heart rate in the mid 50s, 98% on room air. She is afebrile. White blood cell count 10.0, hemoglobin 12.6, platelet count 182. Sodium 138, potassium 4.8, BUN 27, creatinine 1.1. Blood sugar this morning 194. Cholesterol 242, LDL 153, HDL 34, triglycerides 273. 04/28/2018 Patient seen and examined this morning, feels well, no complaints. Blood pressure 127/60 with a heart rate in the 50s, 98% on room air. CBC normal, sodium 140, potassium 4.8, BUN 31, creatinine 1.1. Blood glucose 104 today. Objective - Vital Signs Vital signs: Vital Signs Temp 98.1 F 04/28/18 08:00 Pulse 52 L 04/28/18 08:00 Resp 18 04/28/18 08:00 BP 127/61 04/28/18 08:00 Pulse Ox 98 04/28/18 08:00 Intake & Output 04/27/18 04/28/18 04/28/18 18:59 06:59 18:59 Intake Total 720 Output Total 1701 Balance -981 Weight 87.4 kg 87.8 kg Intake: Oral 720 Output: Urine 1700 Stool 1 Other: Voiding Method Toilet Toilet # Voids 3 1 - Exam PHYSICAL EXAMINATION: GENERAL: 62-year-old female who appears older than her stated age, in no apparent distress at the time of her examination HEENT: Head is atraumatic, normocephalic. Pupils equal, round. Sclera anicteric. Conjunctiva are clear. Mucous membranes of the mouth are moist. Neck is supple. There is no elevated jugular venous pressure.] bruit is heard. HEART EXAMINATION: Heart S1, S2 normal. No murmur or gallop heard. CHEST EXAMINATION: Lungs are clear to auscultation and precussion. No chest wall tenderness is noted on palpation or with deep breathing. ABDOMEN: Soft, nontender. Bowel sounds are heard. No organomegaly noted. EXTREMITIES: 2+ peripheral pulses with no evidence of peripheral edema and no calf tenderness noted. NEUROLOGIC patient is awake, alert and oriented -3. - Labs CBC & Chem 7: 04/28/18 05:47 04/28/18 05:47 Labs: Abnormal Lab Results - Last 24 Hours (Table) 04/27/18 04/27/18 04/28/18 Range/Units 16:05 20:35 05:47 Chloride 108 H (98-107) mmol/L BUN 31 H (7-17) mg/dL Creatinine 1.10 H (0.52-1.04) mg/dL Glucose 104 H (74-99) mg/dL POC Glucose (mg/dL) 236 H 226 H (75-99) mg/dL 04/28/18 Range/Units 06:14 Chloride (98-107) mmol/L BUN (7-17) mg/dL Creatinine (0.52-1.04) mg/dL Glucose (74-99) mg/dL POC Glucose (mg/dL) 109 H (75-99) mg/dL Assessment and Plan Plan: Assessment and plan #1 hypertensive urgency #2 new-onset diabetes, uncontrolled with hyperglycemia #3 nicotine dependence #4 marijuana use Plan Echocardiogram with Doppler study was performed which revealed a normal left ventricular systolic function. From cardiology's perspective, patient may be able to be discharged home once cleared by primary. We'll make her a follow-up appointment in the office to see Dr. Menezes post discharge. DNP note has been reviewed, I agree with a documented findings and plan of care. Patient was seen and examined.
[2018-04-28 11:32] VITALS: BP 156/71; PULSE 56; TEMP 97.4
[2018-04-28 12:09] LABS: Glucose,Whole Blood 144 mg/dL (75-99)
--- NOTE | 2018-04-29 06:38 | DS ---
DISCHARGE SUMMARY DATE OF SERVICE: 04/28/2018. FINAL DIAGNOSES: 1. Accelerated hypertension, new onset hypertensive urgency. 2. New onset diabetes mellitus type 2, uncontrolled with hyperglycemia. 3. History of nicotine dependence. 4. History of THC. 5. Obesity with body mass index 31.6. DISCHARGE DISPOSITION: The patient will be discharged in stable condition with guarded prognosis. HISTORY OF PRESENT ILLNESS: This 62-year-old woman with a past medical history of no significant medical issues admitted with new onset diabetes and hypertension. Patient treatment in conjunction with Cardiology. Medication adjusted. Patient improved significantly. On exam, vitals are stable. CARDIOVASCULAR: S1, S2 muffled. ABDOMEN: Soft. NERVOUS SYSTEM: No focal deficits. DISCHARGE ADVICE AND MEDICATIONS: 1. Diet is cardiac. 2. Activity limited until followup. 3. Follow up with Dr. Rebolledo in 2-3 days. 4. Follow up with Cardiology as recommended. MEDICATIONS: 1. Norvasc 10 mg p.o. daily. 2. Lipitor 40 mg q.h.s. 3. Coreg 6.25 mg b.i.d. 4. Catapres 0.2 mg p.o. b.i.d. 5. Vitamin B2 2000 mg p.o. daily. 6. Motrin p.r.n. 7. Insulin 15 units subcu q.h.s. 8. Cozaar 50 mg p.o. daily. 9. Glucophage 1000 mg p.o. b.i.d.. 10.Multivitamins 1 p.o. daily. 11.Habitrol 14 daily. 12.Protonix 40 mg p.o. daily. 13.Vitamin B6 100 mg p.o. daily. MMODL / IJN: [id number] /
== END 2018-04-28 14:02 | disposition home or self-care (01) | DRG 305 ==
LOC: EC 11:35 → 4MS4W 14:30 → OBSVTOIN 14:30 → 6SEL 15:23
PROVIDERS: ADMIT Internal Medicine; ATTEND Internal Medicine
DX: I16.0 Hypertensive urgency (principal); E11.65 Type 2 diabetes mellitus with hyperglycemia; E66.9 Obesity, unspecified; F17.200 Nicotine dependence, unspecified, uncomplicated; F12.90 Cannabis use, unspecified, uncomplicated; Z79.899 Other long term (current) drug therapy; Z68.31 Body mass index [BMI] 31.0-31.9, adult; Z71.6 Tobacco abuse counseling
CPT/HCPCS: 36415; 70450; 71045; 80048; 80053; 80061; 83036; 85025; 85610; 93005; 93306; 94760; 96360; 96361; 99285

== ENCOUNTER 2018-05-01 14:07 | Emergency (ER) | payer OTHER ==
[2018-05-01 14:29] LABS: Glucose,Whole Blood 165 mg/dL (75-99)
--- NOTE | 2018-05-01 17:38 | ED ---
General Adult HPI - General Chief complaint: Recheck/Abnormal Lab/Rx Stated complaint: Elevated BS Time Seen by Provider: 05/01/18 16:58 Source: patient, RN notes reviewed, old records reviewed Mode of arrival: wheelchair Limitations: no limitations - History of Present Illness Initial comments: Patient is a 62-year-old female presents emergency department for evaluation for dizziness and lightheadedness and elevated blood sugar. She is diagnosed with hypertension and high blood sugar and was discharged from the hospital. Days ago. She has been started on metformin. Her blood sugar was elevated 240 today. Her daughter brought her in because she was concerned because of the dizziness lightheaded and elevated blood sugar. While waiting in the emergency department Patient reports that her symptoms have resolved. Denies any chest pain or shortness of breath. - Related Data Home Medications Medication Instructions Recorded Confirmed Cyanocobalamin (Vitamin B-12) 1,000 mcg PO DAILY 04/25/18 05/01/18 [Vitamin B-12] Ibuprofen [Motrin Ib] 400 mg PO BID PRN 04/25/18 05/01/18 Multivitamins, Thera [Multivitamin 1 tab PO DAILY 04/25/18 05/01/18 (formulary)] Pyridoxine HCl (Vitamin B6) 100 mg PO DAILY 04/25/18 05/01/18 [Vitamin B-6] Previous Rx's Medication Instructions Recorded Atorvastatin [Lipitor] 40 mg PO HS #30 tab 04/27/18 Carvedilol [Coreg] 6.25 mg PO BID-W/MEALS #60 tab 04/27/18 Losartan [Cozaar] 50 mg PO DAILY #30 tab 04/27/18 Nicotine 14Mg/24Hr Patch [Habitrol] 1 patch TRANSDERM DAILY #30 patch 04/27/18 amLODIPine [Norvasc] 10 mg PO DAILY #30 tab 04/27/18 cloNIDine HCL [Catapres] 0.2 mg PO BID #60 tab 04/27/18 metFORMIN HCL [Glucophage] 1,000 mg PO BID-W/MEALS #60 tab 04/27/18 Insulin Glargine,Hum.rec.anlog 15 unit SQ HS #1 syr 04/28/18 [Basaglar Kwikpen U-100] Pantoprazole [Protonix] 40 mg PO ERIC-ANGELA #30 tablet. 04/28/18 Allergies Allergy/AdvReac Type Severity Reaction Status Date / Time No Known Allergies Allergy Verified 05/01/18 17:16 Review of Systems ROS Statement: Those systems with pertinent positive or pertinent negative responses have been documented in the HPI. ROS Other: All systems not noted in ROS Statement are negative. Past Medical History Past Medical History: Diabetes Mellitus, Hypertension History of Any Multi-Drug Resistant Organisms: None Reported Past Surgical History: No Surgical Hx Reported Past Psychological History: No Psychological Hx Reported Smoking Status: Current every day smoker Past Alcohol Use History: None Reported Past Drug Use History: Marijuana General Exam - General Exam Comments Initial Comments: 62-year-old female. Alert and oriented. No acute distress. Limitations: no limitations General appearance: alert Head exam: Present: atraumatic, normocephalic, normal inspection Eye exam: Present: normal appearance, PERRL, EOMI. Absent: scleral icterus, conjunctival injection, periorbital swelling ENT exam: Present: normal exam, mucous membranes moist Neck exam: Present: normal inspection. Absent: tenderness, meningismus, lymphadenopathy Respiratory exam: Present: normal lung sounds bilaterally. Absent: respiratory distress, wheezes, rales, rhonchi, stridor Cardiovascular Exam: Present: regular rate, normal rhythm, normal heart sounds. Absent: systolic murmur, diastolic murmur, rubs, gallop, clicks GI/Abdominal exam: Present: soft, normal bowel sounds. Absent: distended, tenderness, guarding, rebound, rigid Extremities exam: Present: normal inspection, full ROM, normal capillary refill. Absent: tenderness, pedal edema, joint swelling, calf tenderness Back exam: Present: normal inspection Neurological exam: Present: alert, oriented X3, CN II-XII intact Psychiatric exam: Present: normal affect Skin exam: Present: warm, dry, intact, normal color. Absent: rash Course Vital Signs 05/01/18 05/01/18 14:22 19:04 Temperature 98.0 F 97 F L Pulse Rate 52 L 53 L Respiratory 18 20 Rate Blood Pressure 108/63 153/68 O2 Sat by Pulse 98 99 Oximetry Medical Decision Making - Medical Decision Making Patient is a 62-year-old female presents emergency department for evaluation for dizziness and lightheadedness and elevated blood sugar. She is diagnosed with hypertension and high blood sugar and was discharged from the hospital. Days ago. She has been started on metformin. Her blood sugar was elevated 240 today. Her daughter brought her in because she was concerned because of the dizziness lightheaded and elevated blood sugar. She denies any symptoms of light headed or dizziness at this time. Patient lab work was reviewed and shows no acute changes. Discussed Blood sugar of 240 can be expected, and they should schedule to check her BG throughout the day and follow up with PCP. EKG has no acute changes. Patient reports she feels well and wants to go home. Discharged with strict return parameters. - Lab Data Result diagrams: 05/01/18 17:59 05/01/18 17:59 Lab Results 05/01/18 05/01/18 05/01/18 Range/Units 14:27 17:59 17:59 WBC 11.1 H (3.8-10.6) k/uL RBC 4.67 (3.80-5.40) m/uL Hgb 13.3 (11.4-16.0) gm/dL Hct 40.3 (34.0-46.0) % MCV 86.4 (80.0-100.0) fL MCH 28.6 (25.0-35.0) pg MCHC 33.1 (31.0-37.0) g/dL RDW 13.4 (11.5-15.5) % Plt Count 190 (150-450) k/uL Neutrophils % 50 % Lymphocytes % 38 % Monocytes % 5 % Eosinophils % 5 % Basophils % 0 % Neutrophils # 5.6 (1.3-7.7) k/uL Lymphocytes # 4.2 (1.0-4.8) k/uL Monocytes # 0.6 (0-1.0) k/uL Eosinophils # 0.5 (0-0.7) k/uL Basophils # 0.0 (0-0.2) k/uL Sodium 139 (137-145) mmol/L Potassium 5.2 H (3.5-5.1) mmol/L Chloride 109 H (98-107) mmol/L Carbon Dioxide 21 L (22-30) mmol/L Anion Gap 9 mmol/L BUN 30 H (7-17) mg/dL Creatinine 1.20 H (0.52-1.04) mg/dL Est GFR (CKD-EPI)AfAm 55 (>60 ml/min/1.73 sqM) Est GFR (CKD-EPI)NonAf 48 (>60 ml/min/1.73 sqM) Glucose 149 H (74-99) mg/dL POC Glucose (mg/dL) 165 H (75-99) mg/dL POC Glu Access Clerk Galina Powell Calcium 9.0 (8.4-10.2) mg/dL Urine Color Urine Appearance (Clear) Urine pH (5.0-8.0) Ur Specific [place] (1.001-1.035) Urine Protein (Negative) Urine Glucose (UA) (Negative) Urine Ketones (Negative) Urine Blood (Negative) Urine Nitrite (Negative) Urine Bilirubin (Negative) Urine Urobilinogen (<2.0) mg/dL Ur Leukocyte Esterase (Negative) Urine RBC (0-5) /hpf Urine WBC (0-5) /hpf Ur Squamous Epith Cells (0-4) /hpf Urine Bacteria (None) /hpf Hyaline Casts (0-2) /lpf Urine Mucus (None) /hpf 05/01/18 Range/Units 18:19 WBC (3.8-10.6) k/uL RBC (3.80-5.40) m/uL Hgb (11.4-16.0) gm/dL Hct (34.0-46.0) % MCV (80.0-100.0) fL MCH (25.0-35.0) pg MCHC (31.0-37.0) g/dL RDW (11.5-15.5) % Plt Count (150-450) k/uL Neutrophils % % Lymphocytes % % Monocytes % % Eosinophils % % Basophils % % Neutrophils # (1.3-7.7) k/uL Lymphocytes # (1.0-4.8) k/uL Monocytes # (0-1.0) k/uL Eosinophils # (0-0.7) k/uL Basophils # (0-0.2) k/uL Sodium (137-145) mmol/L Potassium (3.5-5.1) mmol/L Chloride (98-107) mmol/L Carbon Dioxide (22-30) mmol/L Anion Gap mmol/L BUN (7-17) mg/dL Creatinine (0.52-1.04) mg/dL Est GFR (CKD-EPI)AfAm (>60 ml/min/1.73 sqM) Est GFR (CKD-EPI)NonAf (>60 ml/min/1.73 sqM) Glucose (74-99) mg/dL POC Glucose (mg/dL) (75-99) mg/dL POC Glu Access Clerk ID Calcium (8.4-10.2) mg/dL Urine Color Yellow Urine Appearance Clear (Clear) Urine pH 5.5 (5.0-8.0) Ur Specific [place] 1.018 (1.001-1.035) Urine Protein 3+ H (Negative) Urine Glucose (UA) Trace H (Negative) Urine Ketones Negative (Negative) Urine Blood Negative (Negative) Urine Nitrite Negative (Negative) Urine Bilirubin Negative (Negative) Urine Urobilinogen 2.0 (<2.0) mg/dL Ur Leukocyte Esterase Trace H (Negative) Urine RBC 1 (0-5) /hpf Urine WBC 3 (0-5) /hpf Ur Squamous Epith Cells 1 (0-4) /hpf Urine Bacteria Rare H (None) /hpf Hyaline Casts 11 H (0-2) /lpf Urine Mucus Rare H (None) /hpf - Radiology Data Radiology results: report reviewed EKG performed at 1823 shows sinus bradycardia otherwise normal EKG. Ventricular rate of 51 beats breath. Pupils 150 ms. QRS duration 82 ms. QT QTc is 470/433 ms. Disposition Clinical Impression: Hyperglycemia Disposition: HOME SELF-CARE Condition: Good Instructions: Diabetic Hyperglycemia (ED) Additional Instructions: Patient is to follow-up with primary care provider. Continue taking medication as prescribed. Return to emergency department if any alarming signs or symptoms occur. Rest, remain hydrated. Is patient prescribed a controlled substance at d/c from ED?: No When asked, does pt state using other controlled substances?: No If prescribed controlled substance>3 days was MAPS reviewed?: No If opioid is for acute pain is fill amount 7 days or less?: No If Rx opioid, was Start Talking consent form obtained?: No Referrals: None,Stated [Primary Care Provider] - 1-2 days Tamika Rinaldi MD [STAFF PHYSICIAN] - 1-2 days Time of Disposition: 18:45
[2018-05-01 18:09] LABS: Basophils % (A) 0 %; Eosinophils # (A) 0.5 k/uL (0-0.7); Eosinophils % (A) 5 %; HCT 40.3 % (34.0-46.0); HGB 13.3 gm/dL (11.4-16.0); Lymphocytes # (A) 4.2 k/uL (1.0-4.8); Lymphocytes % (A) 38 %; MCH 28.6 pg (25.0-35.0); MCHC 33.1 g/dL (31.0-37.0); MCV 86.4 fL (80.0-100.0); Mean Platelet Volume 8.6; Monocytes # (A) 0.6 k/uL (0-1.0); Monocytes % (A) 5 %; Neutrophils # (A) 5.6 k/uL (1.3-7.7); Neutrophils % (A) 50 %; Platelet Count 190 k/uL (150-450); RBC 4.67 m/uL (3.80-5.40); RDW 13.4 % (11.5-15.5); WBC 11.1 k/uL (3.8-10.6)
[2018-05-01 18:24] LABS: Potassium 5.2 mmol/L (3.5-5.1)
[2018-05-01 18:26] LABS: Appearance,Urine Clear (Clear); Bacteria,Urine Rare /hpf; Bilirubin,Urine Negative (Negative); Blood,Urine Negative (Negative); Color,Urine Yellow; Glucose,Urine (UA) Trace (Negative); Hyaline Casts,Urine 11 /lpf (0-2); Ketones,Urine Negative (Negative); Leukocyte Esterase,Urine Trace (Negative); Mucus,Urine Rare /hpf; Nitrite,Urine Negative (Negative); PH, Urine 5.5 (5.0-8.0); Protein,Urine 3+ (Negative); RBC,Urine 1 /hpf (0-5); Specific Gravity,Urine 1.018 (1.001-1.035); Squamous Epithelial Cell,Urine 1 /hpf (0-4); WBC,Urine 3 /hpf (0-5)
[2018-05-01 19:06] VITALS: BP 153/68; PULSE 53; RESP 20; TEMP 97
== END 2018-05-01 19:06 | disposition home or self-care (01) ==
LOC: EC 14:07
DX: E11.65 Type 2 diabetes mellitus with hyperglycemia (principal); F17.200 Nicotine dependence, unspecified, uncomplicated; Z79.899 Other long term (current) drug therapy
CPT/HCPCS: 36415; 80048; 81001; 85025; 93005; 99285

== ENCOUNTER → 2018-07-20 | Outpatient (CLI) | payer OTHER ==
--- NOTE | 2018-07-20 17:51 | US ---
EXAMINATION TYPE: US carotid duplex BILAT DATE OF EXAM: 07/20/2018 COMPARISON: NONE CLINICAL HISTORY: 62-year-old female R42 Dizziness,I10 Hypertension,E11.9 Diabetes. TECHNIQUE: Carotid duplex ultrasound examination are indirect Doppler criteria was utilized. FINDINGS: EXAM MEASUREMENTS: RIGHT: Peak Systolic Velocity (PSV) cm/sec ----- Right CCA: 118 ----- Right ICA: 81.4 ----- Right ECA: 160 ICA/CCA ratio: 0.7 RIGHT: End Diastole cm/sec ----- Right CCA: 19.9 ----- Right ICA: 26.9 ----- Right ECA: 7.8 LEFT: Peak Systolic Velocity (PSV) cm/sec ----- Left CCA: 107 ----- Left ICA: 118 ----- Left ECA: 236 ICA/CCA ratio: 1.1 LEFT: End Diastole cm/sec ----- Left CCA: 17.3 ----- Left ICA: 23.2 ----- Left ECA: 19.4 VERTEBRALS (direction of flow): Right Vertebral: Antegrade Left Vertebral: Antegrade Rhythm: Normal Turnaround Planner notes: Moderate amount of plaque visualized bilaterally. Elevated velocities visualized i n bilateral ECAs. IMPRESSION: No hemodynamically significant stenosis appreciated in either internal carotid artery. There is moder ate atherosclerotic change at each bifurcation. Criteria for Assigning % of Stenosis / Diameter reduction (Estimation based on the indirect measurements of the internal carotid artery velocities (ICA PSV). 1. Normal (no stenosis)=ICA PSV < 125 cm/s: ratio < 2.0: ICA EDV<40 cm/s. 2. Less than 50% stenosis=ICA PSV < 125 cm/s: ratio < 2.0: ICA EDV<40 cm/s. 3. 50 to 69% stenosis=ICA PSV of 125 to 230 cm/s: ration 2.0 ? 4.0: ICA EDV 40-100 cm/s. 4. Greater than 70% stenosis to near occlusion= ICA PSV > 230 cm/s: ratio > 4.0: ICA EDV > 100 cm/s. 5. Near occlusion= ICA PSV velocities may be low or undetectable: variable ratio and ICA EDV. 6. Total occlusion=unable to detect flow.
== END | disposition home or self-care (01) ==
LOC: RADUSWWP 14:07
PROVIDERS: ATTEND Family Medicine
DX: I65.23 Occlusion and stenosis of bilateral carotid arteries (principal); E11.9 Type 2 diabetes mellitus without complications; I10 Essential (primary) hypertension
CPT/HCPCS: 93880

== ENCOUNTER → 2018-08-21 | Outpatient (CLI) | payer OTHER ==
--- NOTE | 2018-08-21 15:42 | MR ---
EXAMINATION TYPE: MR brain wo con DATE OF EXAM: 08/21/2018 2:42 PM COMPARISON: NONE HISTORY: Memory loss FINDINGS: The ventricles, basal cisterns and sulci overlying the cerebral convexities are moderately enlarged. There is evidence of moderate periventricular white matter ischemic demyelination. Remote deep white matter insults are also noted. No acute edema is seen on diffusion weighted imaging. There is no evidence for midline shift or mass effect. Acute intracranial hemorrhage or extra-axial collection is not evident. The paranasal sinuses and mastoid air cells are well-aerated. IMPRESSION: Age-related atrophic and chronic small vessel ischemic change. No acute intracranial process at this time.
== END ==
LOC: RADMRIMAIN 14:06
PROVIDERS: ATTEND Psychiatry & Neurology Neurology
DX: G31.1 Senile degeneration of brain, not elsewhere classified (principal); I67.82 Cerebral ischemia
CPT/HCPCS: 70551

== ENCOUNTER → 2018-08-24 | Outpatient (CLI) | payer OTHER | END | disposition home or self-care (01) | LOC: RADUSWWP 13:54 | PROVIDERS: ATTEND Family Medicine | DX: I70.213 Atherosclerosis of native arteries of extremities with intermittent claudication, bilateral legs (principal); I10 Essential (primary) hypertension; E11.9 Type 2 diabetes mellitus without complications | CPT/HCPCS: 93923 ==